=== PATIENT | male | born 1940 | race Hispanic/Latino ===

== ENCOUNTER 2022-04-30 18:20 | Inpatient (IN) | payer MEDICARE, MEDICAID ==
[2022-04-30 18:54] LABS: #Basophils 0.1 10x3/uL (0.0-0.2); #Monocytes 0.8 10x3/uL (0.0-1.1); #Neutrophils 6.9 10x3/uL (1.5-8.4); %Basophils 0.7 % (0.0-2.0); %Eosinophils 0.5 % (0.0-6.0); %Lymphocytes 9.2 % (18.0-47.0); %Monocytes 9.5 % (0.0-10.0); %Neutrophils 79.5 % (40.0-75.0); Hemoglobin 11.6 g/dL (13.5-17.5); Mean Corpuscular HGB CONC 34.4 g/dL (32.0-36.0); Mean Corpuscular Hemoglobin 29.7 pg (27.0-33.0); Mean Corpuscular Volume 86.4 fl (81.2-95.1); Mean Platelet Volume 9.6 fl (7.4-10.4); Platelet Count 253 10x3/uL (150-450); RBC Distribution Width 12.8 % (11.5-14.5); White Blood Cell (WBC) Count 8.7 10x3/uL (3.5-10.5)
[2022-04-30 19:08] LABS: ALT (SGPT) 18 U/L (8-55); AST (SGOT) 15 U/L (5-34); Albumin 3.4 g/dL (3.4-4.8); Alkaline Phosphatase 130 U/L (40-110); Anion Gap 12 mmol/L (10-20); BUN (Urea Nitrogen) 24 mg/dL (8.4-25.7); Bilirubin, Total 0.5 mg/dL (0.2-1.2); Calc. Creatinine Clearance 0 mL/min (70-130); Calcium 8.7 mg/dL (7.8-10.44); Carbon Dioxide 24 mmol/L (23-31); Chloride 100 mmol/L (98-107); Estimated GFR 88; Potassium 4.2 mmol/L (3.5-5.1); Protein, Total 6.4 g/dL (5.8-8.1); Sodium 132 mmol/L (136-145)
[2022-04-30 19:09] LABS: Glucose 464 mg/dL (83-110)
[2022-04-30 19:30] LABS: Bilirubin Neg (Negative); Blood, Urine 25 (Negative); Clarity Slightly Cloudy (Clear); Glucose, Urine (Dipstick) >=1000 mg/dL (Negative); Ketone, Urine Negative (Negative); Leukocyte 500 (Negative); Nitrite Negative (Negative); Protein, Urine (Dipstick) 15 mg/dl (Neg-Trace); Specific Gravity, Urine 1.015 (1.005-1.030); Urobilinogen Normal mg/dL (Less than 2)
[2022-04-30 19:39] LABS: RBC/HPF 0-3 HPF (0-3)
[2022-04-30 19:40] LABS: Bacteria/HPF 3+ HPF (None Seen); Squamous Epithelial 0-3 HPF (0-3); WBC/HPF Greater than 50 HPF (0-3); Yeast-Budding 3+ HPF (None Seen)
[2022-04-30] MEDS ORDERED: Piperacillin/Tazobactam 3.375 GM VIAL ONE (20:00)
[2022-04-30] MEDS ORDERED: Vancomycin 1 GM VIAL ONE (20:00)
[2022-04-30] MEDS ORDERED: Insulin Regular 300 UNITS/3 ML VIAL ONE (20:05)
[2022-04-30] MEDS ORDERED: Dextrose 50% Abboject 50 ML SYRINGE SLOW IVP PRN (21:13)
[2022-04-30] MEDS ORDERED: HumaLOG 300 UNITS/3 ML VIAL SC PRN (21:13)
[2022-04-30] MEDS ORDERED: Dextrose 5% in Water 1,000 ML IV PRN (21:13)
[2022-04-30] MEDS ORDERED: Senokot S 8.6-50 MG TAB PO PRN (21:14)
[2022-04-30] MEDS ORDERED: Ondansetron ODT 4 MG TAB PO PRN (21:14)
[2022-04-30 23:04] VITALS: BMI 20.5
[2022-05-01 00:10] LABS: Hemoglobin A1c 12.4 % (4.0-6.0)
[2022-05-01 01:16] LABS: SARS-CoV-2 NAA Rapid Test Not Detected (NotDetected)
[2022-05-01 04:05] LABS: #Basophils 0.1 10x3/uL (0.0-0.2); #Eosinphils 0.1 10x3/uL (0.0-0.5); #Monocytes 0.7 10x3/uL (0.0-1.1); #Neutrophils 4.3 10x3/uL (1.5-8.4); %Eosinophils 1.6 % (0.0-6.0); %Lymphocytes 15.9 % (18.0-47.0); %Monocytes 11.7 % (0.0-10.0); %Neutrophils 69.3 % (40.0-75.0); Hemoglobin 10.5 g/dL (13.5-17.5); Mean Corpuscular Hemoglobin 29.2 pg (27.0-33.0); Mean Corpuscular Volume 86.1 fl (81.2-95.1); Mean Platelet Volume 9.3 fl (7.4-10.4); Platelet Count 222 10x3/uL (150-450); RBC Distribution Width 12.6 % (11.5-14.5); Red Blood Cell (RBC) Count 3.59 10x6/uL (4.32-5.72); White Blood Cell (WBC) Count 6.2 10x3/uL (3.5-10.5)
[2022-05-01 04:15] LABS: Anion Gap 9 mmol/L (10-20); BUN (Urea Nitrogen) 19 mg/dL (8.4-25.7); Calc. Creatinine Clearance 75 mL/min (70-130); Calcium 8.2 mg/dL (7.8-10.44); Carbon Dioxide 26 mmol/L (23-31); Chloride 104 mmol/L (98-107); Estimated GFR 94; Glucose 258 mg/dL (83-110); Potassium 3.6 mmol/L (3.5-5.1); Sodium 135 mmol/L (136-145)
[2022-05-01] MEDS: Piperacillin/Tazobactam 3.375 GM in Sodium Chloride 0.9% 100 ML IVPB SCH ×3 (04:16→23:12)
[2022-05-01] MEDS ORDERED: HumaLOG 300 UNITS/3 ML VIAL SC PRN (08:03)
[2022-05-01] MEDS ORDERED: Vancomycin 1.5 GRAM/300 ML BAG IVPB SCH (09:00)
[2022-05-01] MEDS ORDERED: Lisinopril 5 MG TAB PO SCH (09:00)
[2022-05-01] MEDS ORDERED: Atorvastatin Calcium 40 MG TAB PO SCH (09:00)
[2022-05-01] MEDS ORDERED: Lantus 1000 UNITS/10 ML VIAL SC SCH (09:00)
[2022-05-01] MEDS ORDERED: Fluconazole 100 MG TAB PO SCH (09:00)
[2022-05-01] MEDS ORDERED: Tamsulosin HCl 0.4 MG CAP PO SCH (09:00)
[2022-05-01] MEDS ORDERED: Empagliflozin 25 MG TAB PO SCH (09:00)
[2022-05-01] MEDS: Famotidine 20 MG TAB PO SCH ×2 (09:34→23:12)
[2022-05-01] MEDS: Polyethylene Glycol 3350 17 GM Packet PO SCH ×3 (09:37→23:19)
[2022-05-01] MEDS ORDERED: VANCOMYCIN 1.25 GM/250 ML BAG 1.25 GM in Premix Bag 1 BAG IVPB SCH (21:00)
[2022-05-01] MEDS: Lactated Ringer's 1,000 ML IV SCH (23:11)
[2022-05-02 03:45] LABS: #Basophils 0.1 10x3/uL (0.0-0.2); #Eosinphils 0.1 10x3/uL (0.0-0.5); #Monocytes 0.9 10x3/uL (0.0-1.1); #Neutrophils 6.3 10x3/uL (1.5-8.4); %Basophils 0.8 % (0.0-2.0); %Eosinophils 1.1 % (0.0-6.0); %Lymphocytes 17.1 % (18.0-47.0); %Neutrophils 70.3 % (40.0-75.0); Hemoglobin 11.3 g/dL (13.5-17.5); Mean Corpuscular HGB CONC 34.7 g/dL (32.0-36.0); Mean Corpuscular Hemoglobin 29.7 pg (27.0-33.0); Mean Corpuscular Volume 85.8 fl (81.2-95.1); Mean Platelet Volume 9.3 fl (7.4-10.4); Platelet Count 239 10x3/uL (150-450); RBC Distribution Width 12.7 % (11.5-14.5)
[2022-05-02 03:52] LABS: Anion Gap 11 mmol/L (10-20); BUN (Urea Nitrogen) 20 mg/dL (8.4-25.7); CRP (Inflammatory) 2.46 mg/dL (= or < 0.5); Calc. Creatinine Clearance 78 mL/min (70-130); Calcium 8.4 mg/dL (7.8-10.44); Carbon Dioxide 26 mmol/L (23-31); Chloride 103 mmol/L (98-107); Estimated GFR 95; Glucose 77 mg/dL (83-110); Magnesium 1.8 mg/dL (1.6-2.6); Potassium 3.5 mmol/L (3.5-5.1); Sodium 136 mmol/L (136-145)
[2022-05-02] MEDS: Piperacillin/Tazobactam 3.375 GM in Sodium Chloride 0.9% 100 ML IVPB SCH ×2 (03:57→11:20)
[2022-05-02] MEDS ORDERED: HumaLOG 300 UNITS/3 ML VIAL SC PRN (07:54)
[2022-05-02] MEDS: Famotidine 20 MG TAB PO SCH ×3 (10:35→23:23)
[2022-05-02] MEDS: Lactated Ringer's 1,000 ML IV SCH (10:35)
[2022-05-02] MEDS: Polyethylene Glycol 3350 17 GM Packet PO SCH ×2 (10:36→21:34)
[2022-05-02] MEDS ORDERED: Iopamidol 370 76% 150 ML VIAL FS ONE (11:43)
[2022-05-02] MEDS: metroNIDAZOLE 500 MG TAB PO SCH ×2 (15:34→21:23)
[2022-05-02] MEDS ORDERED: glipiZIDE 5 MG TAB PO SCH (17:00)
[2022-05-02] MEDS: Aspirin 81 mg Enteric Coated Tablet PO SCH ×2 (21:23→23:25)
[2022-05-02] MEDS: Atorvastatin Calcium 40 MG TAB PO SCH ×2 (21:24→23:25)
[2022-05-02] MEDS: Acetaminophen 325 MG TAB PO PRN (21:25)
[2022-05-02] MEDS: Cefepime 2 GM in Sodium Chloride 0.9% 100 ML IVPB SCH (21:25)
[2022-05-02] MEDS: Vancomycin HCl 1 GM in Sodium Chloride 0.9% 250 ML 250 ML IVPB SCH (21:39)
[2022-05-02] MEDS: HumaLOG 300 UNITS/3 ML VIAL SC PRN (21:54)
[2022-05-03] MEDS ORDERED: glipiZIDE 5 MG TAB PO SCH (07:30)
[2022-05-03] MEDS: Famotidine 20 MG TAB PO SCH ×2 (09:11→20:31)
[2022-05-03] MEDS: Cefepime 2 GM in Sodium Chloride 0.9% 100 ML IVPB SCH ×2 (09:12→20:32)
[2022-05-03] MEDS: Polyethylene Glycol 3350 17 GM Packet PO SCH ×2 (09:17→20:32)
[2022-05-03] MEDS: metroNIDAZOLE 500 MG TAB PO SCH ×3 (09:34→20:31)
[2022-05-03] MEDS: Vancomycin HCl 1 GM in Sodium Chloride 0.9% 250 ML 250 ML IVPB SCH ×2 (10:04→20:32)
[2022-05-03] MEDS: HumaLOG 300 UNITS/3 ML VIAL SC PRN ×2 (13:36→20:33)
[2022-05-03] MEDS: glipiZIDE 5 MG TAB PO SCH (17:36)
[2022-05-03] MEDS: Aspirin 81 mg Enteric Coated Tablet PO SCH (20:31)
[2022-05-03] MEDS: Atorvastatin Calcium 40 MG TAB PO SCH (20:31)
[2022-05-04] MEDS: HumaLOG 300 UNITS/3 ML VIAL SC PRN ×3 (06:38→20:40)
[2022-05-04] MEDS: Famotidine 20 MG TAB PO SCH ×2 (08:27→20:37)
[2022-05-04] MEDS: metroNIDAZOLE 500 MG TAB PO SCH ×3 (08:27→20:38)
[2022-05-04] MEDS: glipiZIDE 5 MG TAB PO SCH (08:28)
[2022-05-04] MEDS: Cefepime 2 GM in Sodium Chloride 0.9% 100 ML IVPB SCH ×2 (08:34→20:38)
[2022-05-04] MEDS: Polyethylene Glycol 3350 17 GM Packet PO SCH ×2 (08:34→20:42)
[2022-05-04 09:33] LABS: Vancomycin, Trough 11.9 ug/mL
[2022-05-04] MEDS: VANCOMYCIN 1.25 GM/250 ML BAG 1.25 GM in Premix Bag 1 BAG IVPB SCH ×2 (09:54→22:29)
[2022-05-04] MEDS: Vancomycin HCl 1 GM in Sodium Chloride 0.9% 250 ML 250 ML IVPB SCH (10:25)
[2022-05-04] MEDS: Atorvastatin Calcium 40 MG TAB PO SCH (20:37)
[2022-05-04] MEDS: Aspirin 81 mg Enteric Coated Tablet PO SCH (20:37)
[2022-05-04] MEDS: Lantus 1000 UNITS/10 ML VIAL SC SCH (20:39)
[2022-05-05 03:41] LABS: #Basophils 0.1 10x3/uL (0.0-0.2); #Eosinphils 0.1 10x3/uL (0.0-0.5); #Monocytes 0.9 10x3/uL (0.0-1.1); #Neutrophils 4.4 10x3/uL (1.5-8.4); %Basophils 0.9 % (0.0-2.0); %Eosinophils 2.2 % (0.0-6.0); %Lymphocytes 15.6 % (18.0-47.0); %Monocytes 13.6 % (0.0-10.0); %Neutrophils 66.9 % (40.0-75.0); Hemoglobin 11.5 g/dL (13.5-17.5); Mean Corpuscular HGB CONC 33.9 g/dL (32.0-36.0); Mean Corpuscular Hemoglobin 29.3 pg (27.0-33.0); Mean Corpuscular Volume 86.5 fl (81.2-95.1); Mean Platelet Volume 9.6 fl (7.4-10.4); Platelet Count 283 10x3/uL (150-450); RBC Distribution Width 12.9 % (11.5-14.5); Red Blood Cell (RBC) Count 3.92 10x6/uL (4.32-5.72); White Blood Cell (WBC) Count 6.5 10x3/uL (3.5-10.5)
[2022-05-05 03:59] LABS: Anion Gap 12 mmol/L (10-20); BUN (Urea Nitrogen) 21 mg/dL (8.4-25.7); Calc. Creatinine Clearance 72 mL/min (70-130); Calcium 8.6 mg/dL (7.8-10.44); Carbon Dioxide 27 mmol/L (23-31); Chloride 103 mmol/L (98-107); Estimated GFR 93; Glucose 75 mg/dL (83-110); Potassium 3.6 mmol/L (3.5-5.1); Sodium 138 mmol/L (136-145)
[2022-05-05] MEDS: Polyethylene Glycol 3350 17 GM Packet PO SCH ×2 (09:07→21:40)
[2022-05-05] MEDS: Cefepime 2 GM in Sodium Chloride 0.9% 100 ML IVPB SCH ×2 (09:07→21:39)
[2022-05-05] MEDS: metroNIDAZOLE 500 MG TAB PO SCH ×3 (09:07→21:38)
[2022-05-05] MEDS: Famotidine 20 MG TAB PO SCH ×2 (09:07→21:38)
[2022-05-05] MEDS: VANCOMYCIN 1.25 GM/250 ML BAG 1.25 GM in Premix Bag 1 BAG IVPB SCH ×2 (11:39→21:40)
[2022-05-05] MEDS: HumaLOG 300 UNITS/3 ML VIAL SC PRN (17:35)
[2022-05-05] MEDS: Aspirin 81 mg Enteric Coated Tablet PO SCH (21:38)
[2022-05-05] MEDS: Atorvastatin Calcium 40 MG TAB PO SCH (21:38)
[2022-05-05] MEDS: Lantus 1000 UNITS/10 ML VIAL SC SCH (21:38)
[2022-05-06 03:32] LABS: #Basophils 0.1 10x3/uL (0.0-0.2); #Eosinphils 0.2 10x3/uL (0.0-0.5); #Monocytes 0.8 10x3/uL (0.0-1.1); %Basophils 0.8 % (0.0-2.0); %Eosinophils 2.7 % (0.0-6.0); %Lymphocytes 14.9 % (18.0-47.0); %Monocytes 13.1 % (0.0-10.0); %Neutrophils 67.7 % (40.0-75.0); Hemoglobin 11.3 g/dL (13.5-17.5); Mean Corpuscular Hemoglobin 28.6 pg (27.0-33.0); Mean Corpuscular Volume 86.6 fl (81.2-95.1); Mean Platelet Volume 8.9 fl (7.4-10.4); Platelet Count 260 10x3/uL (150-450); RBC Distribution Width 12.7 % (11.5-14.5); Red Blood Cell (RBC) Count 3.95 10x6/uL (4.32-5.72); White Blood Cell (WBC) Count 5.9 10x3/uL (3.5-10.5)
[2022-05-06 03:45] LABS: Anion Gap 9 mmol/L (10-20); BUN (Urea Nitrogen) 18 mg/dL (8.4-25.7); Calc. Creatinine Clearance 73 mL/min (70-130); Calcium 8.5 mg/dL (7.8-10.44); Carbon Dioxide 29 mmol/L (23-31); Chloride 102 mmol/L (98-107); Estimated GFR 93; Glucose 186 mg/dL (83-110); Potassium 3.7 mmol/L (3.5-5.1); Sodium 136 mmol/L (136-145)
[2022-05-06] MEDS: Cefepime 2 GM in Sodium Chloride 0.9% 100 ML IVPB SCH ×2 (08:45→21:10)
[2022-05-06] MEDS: Vancomycin HCl 1 GM in Sodium Chloride 0.9% 250 ML 250 ML IVPB SCH ×2 (09:20→22:37)
[2022-05-06] MEDS: Famotidine 20 MG TAB PO SCH ×2 (09:20→21:14)
[2022-05-06] MEDS: Polyethylene Glycol 3350 17 GM Packet PO SCH ×2 (09:20→21:19)
[2022-05-06] MEDS: metroNIDAZOLE 500 MG TAB PO SCH ×3 (09:20→21:15)
[2022-05-06] MEDS: HumaLOG 300 UNITS/3 ML VIAL SC PRN (16:43)
[2022-05-06] MEDS: Atorvastatin Calcium 40 MG TAB PO SCH (21:15)
[2022-05-06] MEDS: Aspirin 81 mg Enteric Coated Tablet PO SCH (21:15)
[2022-05-06] MEDS: Lantus 1000 UNITS/10 ML VIAL SC SCH (22:15)
[2022-05-07 04:58] LABS: #Basophils 0.1 10x3/uL (0.0-0.2); #Eosinphils 0.2 10x3/uL (0.0-0.5); #Monocytes 0.9 10x3/uL (0.0-1.1); #Neutrophils 4.8 10x3/uL (1.5-8.4); %Basophils 1.5 % (0.0-2.0); %Eosinophils 2.4 % (0.0-6.0); %Lymphocytes 16.3 % (18.0-47.0); %Monocytes 11.9 % (0.0-10.0); %Neutrophils 67.2 % (40.0-75.0); Hemoglobin 12.3 g/dL (13.5-17.5); Mean Corpuscular HGB CONC 33.6 g/dL (32.0-36.0); Mean Corpuscular Hemoglobin 29.4 pg (27.0-33.0); Mean Corpuscular Volume 87.4 fl (81.2-95.1); Mean Platelet Volume 9.3 fl (7.4-10.4); Platelet Count 304 10x3/uL (150-450); Red Blood Cell (RBC) Count 4.19 10x6/uL (4.32-5.72); White Blood Cell (WBC) Count 7.2 10x3/uL (3.5-10.5)
[2022-05-07 05:16] LABS: Anion Gap 12 mmol/L (10-20); BUN (Urea Nitrogen) 18 mg/dL (8.4-25.7); Calc. Creatinine Clearance 74 mL/min (70-130); Calcium 8.7 mg/dL (7.8-10.44); Carbon Dioxide 29 mmol/L (23-31); Chloride 102 mmol/L (98-107); Estimated GFR 94; Glucose 105 mg/dL (83-110); Potassium 3.8 mmol/L (3.5-5.1); Sodium 139 mmol/L (136-145)
[2022-05-07] MEDS ORDERED: Bupivacaine PF 0.5% 30 ML VIAL ONE (06:56)
[2022-05-07] MEDS ORDERED: PROPOFOL 20 ML ONE ×2 (07:38)
[2022-05-07] MEDS ORDERED: Fentanyl 100 MCG/2 ML VIAL ONE (07:38)
[2022-05-07] MEDS ORDERED: Midazolam HCl 2 mg/2 ml Vial ONE (07:38)
[2022-05-07] MEDS ORDERED: Ketamine 50 MG/ML (10ML VIAL) ONE (07:39)
[2022-05-07] MEDS ORDERED: Lidocaine 1% PF 5 ML VIAL ONE (07:40)
[2022-05-07] MEDS ORDERED: ePHEDrine Sulfate 50 MG/10 ML VIAL ONE (07:57)
[2022-05-07] MEDS ORDERED: Phenylephrine 10 MG/ML VIAL ONE (07:58)
[2022-05-07] MEDS: Famotidine 20 MG TAB PO SCH ×2 (11:17→20:24)
[2022-05-07] MEDS: Polyethylene Glycol 3350 17 GM Packet PO SCH ×2 (11:18→20:28)
[2022-05-07] MEDS: Vancomycin HCl 1 GM in Sodium Chloride 0.9% 250 ML 250 ML IVPB SCH (11:18)
[2022-05-07] MEDS: Cefepime 2 GM in Sodium Chloride 0.9% 100 ML IVPB SCH (11:18)
[2022-05-07] MEDS: metroNIDAZOLE 500 MG TAB PO SCH (11:18)
[2022-05-07] MEDS: HumaLOG 300 UNITS/3 ML VIAL SC PRN ×2 (16:32→20:25)
[2022-05-07] MEDS: Atorvastatin Calcium 40 MG TAB PO SCH (20:24)
[2022-05-07] MEDS: Doxycycline 100 MG CAP PO SCH (20:24)
[2022-05-07] MEDS: Amoxicillin/Potassium Clav 875 MG TAB PO SCH (20:25)
[2022-05-07] MEDS: Aspirin 81 mg Enteric Coated Tablet PO SCH (20:25)
[2022-05-07] MEDS: Lantus 1000 UNITS/10 ML VIAL SC SCH (20:25)
[2022-05-07] MEDS: Acetaminophen 325 MG TAB PO PRN (20:27)
[2022-05-08] MEDS: Acetaminophen 325 MG TAB PO PRN ×2 (00:33→13:40)
[2022-05-08] MEDS: Amoxicillin/Potassium Clav 875 MG TAB PO SCH (09:34)
[2022-05-08] MEDS: Famotidine 20 MG TAB PO SCH (09:34)
[2022-05-08] MEDS: Doxycycline 100 MG CAP PO SCH (09:35)
[2022-05-08] MEDS: Polyethylene Glycol 3350 17 GM Packet PO SCH (09:35)
[2022-05-08 14:01] VITALS: BP 132/71; TEMP 98.7
== END 2022-05-08 14:06 | DRG 617 ==
LOC: CSHERS 18:20 → CSHTELE 23:00
PROVIDERS: ADMIT Student in an Organized Health Care Education/Training Program; ATTEND Family Medicine
PROC: 0Y6U0Z0 Detachment at Left 3rd Toe, Complete, Open Approach (ICD-10-PCS; principal; 2022-05-07)
PROC: 0Y6T0Z0 Detachment at Right 3rd Toe, Complete, Open Approach (ICD-10-PCS; 2022-05-07)
DX: E11.69 Type 2 diabetes mellitus with other specified complication (principal); E11.52 Type 2 diabetes mellitus with diabetic peripheral angiopathy with gangrene; M86.071 Acute hematogenous osteomyelitis, right ankle and foot; N30.00 Acute cystitis without hematuria; M86.072 Acute hematogenous osteomyelitis, left ankle and foot; L97.529 Non-pressure chronic ulcer of other part of left foot with unspecified severity; Z51.5 Encounter for palliative care; E11.40 Type 2 diabetes mellitus with diabetic neuropathy, unspecified; E78.5 Hyperlipidemia, unspecified; E11.621 Type 2 diabetes mellitus with foot ulcer; E11.65 Type 2 diabetes mellitus with hyperglycemia; R53.1 Weakness; L97.519 Non-pressure chronic ulcer of other part of right foot with unspecified severity; I10 Essential (primary) hypertension; I25.10 Atherosclerotic heart disease of native coronary artery without angina pectoris; F17.210 Nicotine dependence, cigarettes, uncomplicated; E83.42 Hypomagnesemia; Z20.822 Contact with and (suspected) exposure to COVID-19; Z86.16 Personal history of COVID-19; I25.2 Old myocardial infarction; Z87.440 Personal history of urinary (tract) infections; Z90.49 Acquired absence of other specified parts of digestive tract; Z98.890 Other specified postprocedural states; Z79.84 Long term (current) use of oral hypoglycemic drugs; Z79.4 Long term (current) use of insulin; Z79.899 Other long term (current) drug therapy; Z79.02 Long term (current) use of antithrombotics/antiplatelets
CPT/HCPCS: 36415; 36416; 75635; 76770; 80048; 80053; 80202; 81003; 81015; 83036; 83605; 83735; 85025; 86140; 87040; 87086; 87811; 88305; 93923; 96365; 96375; J0692; J1650; J1815; J2250; J2370; J2543; J2704; J3010; J3370; J3490; J7050; J7120; Q0162; S0020; U0002

== ENCOUNTER 2022-06-26 13:35 | Emergency (ER) | payer MEDICARE, MEDICAID | END 2022-06-26 18:38 | disposition home or self-care (01) | LOC: CSHERS 13:35 | DX: T81.89XA Other complications of procedures, not elsewhere classified, initial encounter (principal); I10 Essential (primary) hypertension; E78.5 Hyperlipidemia, unspecified; E11.9 Type 2 diabetes mellitus without complications ==